=== PATIENT | female | born 1960 | race Caucasian/White ===

== ENCOUNTER 2022-08-20 16:07 | Outpatient (CLI) | payer OTHER, SELFPAY ==
[2022-08-20 22:06] LABS: Basophils Absolute Auto 0.04 K/uL (0.00-0.30); Basophils Percent Auto 0.7 % (0.0-3.0); Eosinophils Percent Auto 5.3 % (0.0-7.0); Hematocrit 44.5 % (33.0-51.0); Immature Granulocytes Abs Auto 0.01 K/uL (0.00-0.30); Immature Granulocytes Pct Auto 0.2 %; Lymphocytes Percent Auto 44.2 % (20-44); Mean Corpuscular HGB Conc 34 gm/dL (32-36); Mean Corpuscular Hemoglobin 30 pg (26-34); Mean Corpuscular Volume 89 fL (80-100); Monocytes Percent Auto 8.1 % (0.0-11.0); Neutrophils Percent Auto 41.5 % (42.0-72.0); Platelet Count* 294 K/uL (140-440); RDW Coefficient of Variation % 12.6 % (11.5-15.5); Red Blood Count 4.98 m/uL (4.00-5.20); White Blood Count* 5.65 K/uL (4.50-11.00)
[2022-08-20 22:16] LABS: Slide Review Reflex No
[2022-08-20 22:28] LABS: Chloride* 105 mmol/L (96-114)
[2022-08-20 22:29] LABS: Potassium* 4.1 mmol/L (3.6-5.1); Sodium* 139 mmol/L (135-149)
[2022-08-20 22:31] LABS: Creatinine* 0.8 mg/dL (0.5-1.5); Estimated Glomerular Filt Rate 82 ml/min
[2022-08-20 22:32] LABS: Blood Urea Nitrogen* 18 mg/dL (7-30); Calcium* 8.9 mg/dL (8.4-10.6); Carbon Dioxide* 27 mmol/L (20-32); Glucose* 93 mg/dL (60-115)
[2022-08-20 23:13] LABS: Erythrocyte SedimentationRate* 4 mm/hr (2-20)
[2022-08-20 23:21] LABS: Vitamin B12* 482 pg/mL (243-894)
[2022-08-21 08:53] LABS: Vitamin D 25 Hydroxy* 20 ng/mL (30-80)
[2022-08-23 06:53] LABS: CRP, High Sensitivity 0.6 mg/L (<=3.0)
== END 2022-08-20 16:08 | disposition home or self-care (01) ==
PROVIDERS: PCP Nurse Practitioner Family; Visit Provider Nurse Practitioner Family
DX: R20.0 Anesthesia of skin (principal); R20.2 Paresthesia of skin; R53.83 Other fatigue; E78.5 Hyperlipidemia, unspecified; I10 Essential (primary) hypertension; F41.9 Anxiety disorder, unspecified
CPT/HCPCS: 80048; 82306; 82607; 84443; 85025; 85651; 86141

== ENCOUNTER 2023-11-22 09:40 | Outpatient (CLI) | payer OTHER, SELFPAY | END 2023-11-22 09:41 | disposition home or self-care (01) | PROVIDERS: PCP Nurse Practitioner Family; Visit Provider Nurse Practitioner Family | DX: E78.5 Hyperlipidemia, unspecified (principal); I10 Essential (primary) hypertension; R00.2 Palpitations; Z79.899 Other long term (current) drug therapy; R20.2 Paresthesia of skin; Z13.21 Encounter for screening for nutritional disorder | CPT/HCPCS: 80053; 80061; 82306; 82607; 84443; 85025 ==

== ENCOUNTER 2024-03-27 09:22 | Outpatient (CLI) | payer OTHER, SELFPAY | END 2024-03-27 09:23 | disposition home or self-care (01) | LOC: KYNREF 09:22 | PROVIDERS: PCP Nurse Practitioner Family; Visit Provider Nurse Practitioner Family | DX: E87.6 Hypokalemia (principal) | CPT/HCPCS: 80048 ==